=== PATIENT | female | born 1950 | race Caucasian/White ===

== ENCOUNTER 2017-10-28 18:32 | Inpatient (IN) | payer MEDICAID, MEDICARE ==
[~2017-10-28] VITALS: Ht 157.5 cm; Wt 63.0 kg
[2017-10-28 18:32] VITALS: BP_SYST 151
[2017-10-28] MEDS ORDERED: ASPIRIN 81 MG TAB.CHEW PO ONE (18:45)
[2017-10-28 19:19] LABS: BASOPHILS % (AUTO) 0.5 % (0.0-2.0); EOSINOPHILS # (AUTO) 0.4 K/uL (0.0-0.4); EOSINOPHILS % (AUTO) 3.9 % (0.0-4.0); HEMATOCRIT 40.5 % (36-48); HEMOGLOBIN 13.9 g/dL (12.0-16.0); LYMPHOCYTES # (AUTO) 3.9 K/uL (1.0-5.5); LYMPHOCYTES % (AUTO) 40.1 % (20.5-51.5); MEAN CORPUSCULAR HEMOGLOBIN 32 pg (27-31); MEAN CORPUSCULAR HGB CONC 34 % (32-36); MEAN CORPUSCULAR VOLUME 93 fL (79.0-98.0); MONOCYTES # (AUTO) 0.9 K/uL (0.0-1.0); MONOCYTES % (AUTO) 9.5 % (1.7-9.3); NEUTROPHILS # (AUTO) 4.4 K/uL (1.8-7.7); PLATELET COUNT (AUTO) 294 K/uL (130-430); RED BLOOD CELL COUNT(AUTO) 4.36 MIL/uL (4.2-6.2); RED CELL DISTRIBUTION WIDTH 13.8 % (9.0-15.0); WHITE BLOOD COUNT (AUTO) 9.6 K/uL (4.8-10.8)
[2017-10-28 19:27] LABS: CALCIUM 10.1 mg/dL (8.4-11.0); CREATININE 0.82 mg/dL (0.55-1.30)
[2017-10-28 19:31] LABS: INR 0.9 (0.8-1.2); PROTHROMBIN TIME 9.6 SECS (9.5-12.5)
[2017-10-28 19:32] LABS: ALBUMIN 4.5 g/dL (3.4-4.8); TOTAL BILIRUBIN 0.6 mg/dL (0.0-1.0)
[2017-10-28] MEDS ORDERED: ZOLP5TAB2 PO (21:07)
[2017-10-28] MEDS ORDERED: FLUO10CA65 PO (21:07)
[2017-10-28] MEDS ORDERED: SIMV10TA2 PO (21:07)
[2017-10-28] MEDS ORDERED: ALPR0.2583 PO (21:07)
[2017-10-28] MEDS ORDERED: TRAM50TA92 PO (21:07)
[2017-10-28] MEDS ORDERED: GABA-529 PO (21:07)
[2017-10-28] MEDS ORDERED: LEVO25TA7 PO (21:07)
[2017-10-28] MEDS ORDERED: ATEN-41 PO (21:07)
[2017-10-28] MEDS ORDERED: OMEP40CA33 PO (21:07)
[2017-10-28 21:35] VITALS: BP_SYST 129
[2017-10-28 21:40] VITALS: BP_SYST 129
[2017-10-28] MEDS ORDERED: MAG-AL HYDROX/SIMETH 30 ML UDC PO ONE (23:00)
[2017-10-28] MEDS ORDERED: MAG-AL HYDROX/SIMETH 30 ML UDC PO PRN (23:00)
[2017-10-28] MEDS: ALPRAZolam 0.25 MG TABLET PO SCH (23:22)
[2017-10-28] MEDS: GABAPENTIN 300 MG CAPSULE PO SCH (23:22)
[2017-10-28] MEDS: traMADol HCL HCL 50 MG TABLET (ULTRAM) PO SCH (23:23)
[2017-10-28] MEDS: ZOLPIDEM TARTRATE 5 MG TABLET PO SCH (23:24)
[2017-10-28] MEDS: OMEPRAZOLE 20 MG CAPSULE.DR (PriLOSEC) PO SCH (23:24)
[2017-10-29 01:01] VITALS: BP_SYST 131
[2017-10-29 01:57] LABS: BILIRUBIN,URINE NEGATIVE (NEGATIVE); BLOOD, URINE NEGATIVE (NEGATIVE); CLARITY/URINE CLEAR (CLEAR); COLOR,URINE YELLOW (YELLOW); GLUCOSE,URINE NEGATIVE (NEGATIVE); KETONES,URINE NEGATIVE (NEGATIVE); LEUKOCYTE ESTERASE ,URINE TRACE (NEGATIVE); NITRITE, URINE NEGATIVE (NEGATIVE); PH,URINE 6.5 (5.0-8.0); PROTEIN URINE NEGATIVE (NEGATIVE); UROBILINOGEN,URINE 0.2 (0.2-1.0)
[2017-10-29 02:12] LABS: BACTERIA,URINE RARE /HPF (None Seen); RBC,URINE 0-3 /HPF (0-3); WBC,URINE 0-3 /HPF (0-3)
[2017-10-29 07:16] LABS: BASOPHILS # (AUTO) 0.1 K/uL (0.0-0.2); BASOPHILS % (AUTO) 0.7 % (0.0-2.0); EOSINOPHILS # (AUTO) 0.4 K/uL (0.0-0.4); EOSINOPHILS % (AUTO) 5.5 % (0.0-4.0); HEMATOCRIT 38.7 % (36-48); HEMOGLOBIN 13.1 g/dL (12.0-16.0); LYMPHOCYTES # (AUTO) 3.2 K/uL (1.0-5.5); LYMPHOCYTES % (AUTO) 39.1 % (20.5-51.5); MEAN CORPUSCULAR HEMOGLOBIN 32 pg (27-31); MEAN CORPUSCULAR HGB CONC 34 % (32-36); MEAN CORPUSCULAR VOLUME 93 fL (79.0-98.0); MONOCYTES # (AUTO) 0.8 K/uL (0.0-1.0); MONOCYTES % (AUTO) 10.5 % (1.7-9.3); NEUTROPHILS # (AUTO) 3.6 K/uL (1.8-7.7); NEUTROPHILS % (AUTO) 44.2 % (40.0-70.0); PLATELET COUNT (AUTO) 245 K/uL (130-430); RED BLOOD CELL COUNT(AUTO) 4.14 MIL/uL (4.2-6.2); RED CELL DISTRIBUTION WIDTH 13.9 % (9.0-15.0); WHITE BLOOD COUNT (AUTO) 8.1 K/uL (4.8-10.8)
[2017-10-29 07:33] LABS: ALBUMIN 3.5 g/dL (3.4-4.8); CALCIUM 9.3 mg/dL (8.4-11.0); CREATININE 0.95 mg/dL (0.55-1.30); FREE T4 (FREE THYROXINE) 0.5 ng/dL (0.6-1.6); PHOSPHORUS 4.2 mg/dL (2.7-4.5); POTASSIUM 4.1 mmol/L (3.5-5.1); THYROID STIMULATING HORMONE 29.97 uIu/mL (0.34-4.82); TOTAL BILIRUBIN 0.7 mg/dL (0.0-1.0)
[2017-10-29 08:00] VITALS: BP_SYST 140
[2017-10-29] MEDS: OMEPRAZOLE 20 MG CAPSULE.DR (PriLOSEC) PO SCH ×3 (09:00→21:03)
[2017-10-29] MEDS ORDERED: LEVOTHYROXINE SODIUM 0.025 MG TABLET PO SCH (09:00)
[2017-10-29] MEDS: traMADol HCL HCL 50 MG TABLET (ULTRAM) PO SCH ×3 (10:17→21:04)
[2017-10-29] MEDS: SIMVASTATIN 40 MG TABLET PO SCH (10:17)
[2017-10-29] MEDS: FLUoxetine HCL 10 MG CAPSULE (PROzac) PO SCH (10:17)
[2017-10-29] MEDS: GABAPENTIN 300 MG CAPSULE PO SCH ×3 (10:17→21:02)
[2017-10-29] MEDS: ALPRAZolam 0.25 MG TABLET PO SCH ×3 (10:18→21:03)
[2017-10-29] MEDS: ATENOLOL 25 MG TABLET(TENORMIN) PO SCH (10:19)
[2017-10-29 11:25] VITALS: BP_SYST 109
[2017-10-29 15:22] VITALS: BP_SYST 94
[2017-10-29 20:05] VITALS: BP_SYST 124
[2017-10-29] MEDS: ZOLPIDEM TARTRATE 5 MG TABLET PO SCH ×2 (22:20→22:21)
[2017-10-30 01:07] VITALS: BP_SYST 150; BP_SYST 98
[2017-10-30 05:03] VITALS: BP_SYST 93
[2017-10-30] MEDS ORDERED: LEVOTHYROXINE SODIUM 0.05 MG TABLET PO SCH (07:00)
[2017-10-30] MEDS ORDERED: fentaNYL CITRATE/PF 100 MCG/2 ML AMP ONE (07:05)
[2017-10-30] MEDS ORDERED: SIMETHICONE 40 MG/0.6 ML ML ONE (07:05)
[2017-10-30] MEDS ORDERED: MIDAZOLAM HCL 5 MG/5 ML VIAL ONE (07:06)
[2017-10-30 07:37] LABS: PROTHROMBIN TIME 9.7 SECS (9.5-12.5)
[2017-10-30 08:30] VITALS: BP_SYST 115
[2017-10-30] MEDS: OMEPRAZOLE 20 MG CAPSULE.DR (PriLOSEC) PO SCH (08:40)
[2017-10-30] MEDS: traMADol HCL HCL 50 MG TABLET (ULTRAM) PO SCH ×2 (08:40→14:13)
[2017-10-30] MEDS: SIMVASTATIN 40 MG TABLET PO SCH (08:40)
[2017-10-30] MEDS: ALPRAZolam 0.25 MG TABLET PO SCH ×2 (08:40→14:14)
[2017-10-30] MEDS: FLUoxetine HCL 10 MG CAPSULE (PROzac) PO SCH (08:40)
[2017-10-30] MEDS: GABAPENTIN 300 MG CAPSULE PO SCH ×2 (08:40→14:14)
[2017-10-30] MEDS: ATENOLOL 25 MG TABLET(TENORMIN) PO SCH (08:49)
[2017-10-30 11:26] VITALS: BP_SYST 106
[2017-10-30 15:25] VITALS: BP_SYST 113
[2017-10-30 17:13] VITALS: BP_SYST 113
== END 2017-10-30 18:30 | disposition home or self-care (01) | DRG 241 ==
LOC: SED 18:32 → STU 21:08 → SMU 10-29 15:26
PROVIDERS: ADMIT Internal Medicine; ATTEND Internal Medicine
PROC: 0DB78ZX Excision of Stomach, Pylorus, Via Natural or Artificial Opening Endoscopic, Diagnostic (ICD-10-PCS; principal; 2017-10-30 07:30)
DX: K29.70 Gastritis, unspecified, without bleeding (principal); T18.2XXA Foreign body in stomach, initial encounter; I10 Essential (primary) hypertension; K31.84 Gastroparesis; K21.0 Gastro-esophageal reflux disease with esophagitis; E78.5 Hyperlipidemia, unspecified; F32.9 Major depressive disorder, single episode, unspecified; G89.29 Other chronic pain; R07.89 Other chest pain; M19.90 Unspecified osteoarthritis, unspecified site; E03.9 Hypothyroidism, unspecified; F17.210 Nicotine dependence, cigarettes, uncomplicated; F41.9 Anxiety disorder, unspecified; X58.XXXA Exposure to other specified factors, initial encounter; Y93.89 Activity, other specified; Y92.89 Other specified places as the place of occurrence of the external cause; Y99.8 Other external cause status; Z79.899 Other long term (current) drug therapy; Z90.49 Acquired absence of other specified parts of digestive tract
CPT/HCPCS: 36415; 43239; 71045; 76700-TC; 80053; 80061; 81000-TC; 82550-TC; 83690-TC; 83735-TC; 83880; 84100-TC; 84439; 84443-TC; 84484; 85025; 85610-TC; 85730-TC; 87081; 88305; 88312; 88313; 93005; 93306; 99285; J2250; J3010

== ENCOUNTER 2022-11-21 07:53 | Emergency (ER) | payer MEDICARE, MEDICAID ==
[~2022-11-21] VITALS: Ht 152.4 cm; Wt 63.5 kg
[~2022-11-21 07:53] MED LIST: ALPR0.25 PO; ATEN-41 PO; GABA-529 PO; LEVO25TA7 PO; OMEP40CA20 PO; PRO10 PO; SIMV-341 PO; TRAM50TA92 PO; ZOLP5TAB2 PO
[2022-11-21 08:04] VITALS: BP_SYST 150
[2022-11-21] MEDS ORDERED: NACL 0.9% 1,000 ML IV ONE (08:15)
[2022-11-21] MEDS ORDERED: ONDANSETRON HCL 4 MG/2 ML VIAL IVP ONE (08:15)
[2022-11-21] MEDS ORDERED: KETOROLAC TROMETHAMINE 30 MG VIAL IVP ONE (08:30)
[2022-11-21 08:52] LABS: BASOPHILS % (AUTO) 0.3 % (0.0-2.0); EOSINOPHILS # (AUTO) 0.4 K/uL (0.0-0.4); EOSINOPHILS % (AUTO) 3.8 % (0.0-4.0); HEMATOCRIT 37.1 % (36-48); HEMOGLOBIN 12.3 g/dL (12.0-16.0); LYMPHOCYTES # (AUTO) 2.5 K/uL (1.0-5.5); LYMPHOCYTES % (AUTO) 26.1 % (20.5-51.5); MEAN CORPUSCULAR HEMOGLOBIN 31 pg (27-31); MEAN CORPUSCULAR HGB CONC 33 % (32-36); MEAN CORPUSCULAR VOLUME 93 fL (79.0-98.0); MONOCYTES % (AUTO) 10.5 % (1.7-9.3); NEUTROPHILS # (AUTO) 5.7 K/uL (1.8-7.7); NEUTROPHILS % (AUTO) 59.3 % (40.0-70.0); PLATELET COUNT (AUTO) 252 K/uL (130-430); RED BLOOD CELL COUNT(AUTO) 3.97 MIL/uL (4.2-6.2); RED CELL DISTRIBUTION WIDTH 15.2 % (9.0-15.0); WHITE BLOOD COUNT (AUTO) 9.6 K/uL (4.8-10.8)
[2022-11-21 09:16] LABS: ANION GAP 6 (5-15); CHLORIDE 102 mmol/L (98-107); CREATININE 1.03 mg/dL (0.55-1.30); GLUCOSE 108 mg/dL (70-99); UREA NITROGEN, BLOOD 26 mg/dL (8-21)
[2022-11-21 09:22] LABS: ALANINE AMINOTRANSFERASE 39 U/L (12-78); ALBUMIN 3.8 g/dL (3.4-4.8); ASPARTATE AMINOTRANSFERASE 28 U/L (10-37); TOTAL BILIRUBIN 1.1 mg/dL (0.0-1.0)
[2022-11-21] MEDS ORDERED: IBUP-1969 PO (10:05)
[2022-11-21] MEDS ORDERED: ONDA-8 TL (10:05)
[2022-11-21 11:24] VITALS: BP_SYST 150
== END 2022-11-21 11:26 | disposition home or self-care (01) ==
LOC: SED 07:53
DX: R19.7 Diarrhea, unspecified (principal); E86.0 Dehydration; R11.10 Vomiting, unspecified; R51.9 Headache, unspecified; E78.5 Hyperlipidemia, unspecified; I10 Essential (primary) hypertension; Z79.899 Other long term (current) drug therapy
CPT/HCPCS: 99284; 96374; 96361; 96375; 80053; 85025; 84484; 36415; 93005; J1885; J2405; J7030